=== PATIENT | female | born 1970 | race Caucasian/White ===

== ENCOUNTER 2018-01-15 13:27 | Emergency (ER) | payer OTHER ==
--- NOTE | 2018-01-15 14:03 | Emergency Department Record ---
History of Present Illness - General Chief Complaint: Headache Migraine Stated Complaint: SHANKAR Time Seen by Provider: 01/15/18 13:31 Source: Patient, RN notes reviewed Mode of Arrival: Ambulatory - History of Present Illness Initial Comments: neck pain and headache and she has been off migraine medications because the headaches were better and the last two more headche. This headache today strated this Am and other headaches in the last two weeks. Motrin 800 at 5 am today. She works as a RN. Primary Dr. Perez. previously Bisoprolol and topamax , Moving neck well but she has right paracervical muscle pain. No nuchal signs MD Complaint: Headache Onset/Timin -: Hour(s) Onset Description: Awoke with symptoms Location: Frontal, Neck Severity: Moderate Severity scale (1-10): 7 Quality: Pulsatile, Throbbing Improves With: Nothing Worsens With: Light, Movement of head/neck Associated Symptoms: Nausea Treatments Prior to Arrival: None - Related Data Previous Rx's Medication Instructions Recorded Naproxen [Naprosyn] 500 mg PO Q12H #20 tab. 01/15/18 Allergies Allergy/AdvReac Type Severity Reaction Status Date / Time Sulfa (Sulfonamide AdvReac NAUSEA AND Verified 01/15/18 13:41 Antibiotics) VOMITING Travel Screening - Travel/Exposure Within Last 30 Days Have you traveled within the last 30 days?: No - Travel/Exposure Within Last Year Have you traveled outside the [place] in the last year?: No - Additonal Travel Details Have you been exposed to anyone with a communicable illness?: No - Travel Symptoms Symptom Screening: None Review of Systems Reviewed: No additional complaints except as noted below Constitutional: Reports: As per HPI. Denies: Chills, Fever, Malaise, Night sweats, Weakness, Weight change Eyes: Reports: As per HPI. Denies: Eye discharge, Eye pain, Photophobia, Vision change ENT: Reports: As per HPI. Denies: Congestion, Dental pain, Ear pain, Epistaxis , Hearing loss, Throat pain Respiratory: Reports: As per HPI. Denies: Cough, Dyspnea, Hemoptysis, Stridor, Wheezes Cardiovascular: Reports: As per HPI. Denies: Arrhythmia, Chest pain, Dyspnea on exertion, Edema, Murmurs, Orthopnea, Palpitations, Paroxysmal nocturnal dyspnea, Rheumatic Fever, Syncope Endocrine: Reports: As per HPI. Denies: Fatigue, Heat or cold intolerance, Polydipsia, Polyuria Gastrointestinal: Reports: As per HPI. Denies: Abdominal pain, Constipation, Diarrhea, Hematemesis, Hematochezia, Melena, Nausea, Vomiting Genitourinary: Reports: As per HPI. Denies: Abnormal menses, Discharge, Dyspareunia, Dysuria, Frequency, Hematuria, Incontinence, Retention, Urgency Musculoskeletal: Reports: As per HPI. Denies: Arthralgia, Back pain, Gout, Joint swelling, Myalgia, Neck pain Skin: Reports: As per HPI. Denies: Bruising, Change in color, Change in hair/ nails, Lesions, Pruritus, Rash Neurological: Reports: As per HPI, Headache. Denies: Abnormal gait, Confusion, Numbness, Paresthesias, Seizure, Tingling, Tremors, Vertigo, Weakness Psychiatric: Reports: As per HPI. Denies: Anxiety, Auditory hallucinations, Depression, Homicidal thoughts, Suicidal thoughts, Visual hallucinations Hematological/Lymphatic: Reports: As per HPI. Denies: Anemia, Blood Clots, Easy bleeding, Easy bruising, Swollen glands Past Medical History - SOCIAL HISTORY Smoking Status: Never smoker Alcohol Use: None Drug Use: None - RESPIRATORY Hx Respiratory Disorders: No - CARDIOVASCULAR Hx Cardio Disorders: No - NEURO Hx Neuro Disorders: Yes Hx Headaches: Yes - GI Hx GI Disorders: No - Hx Genitourinary Disorders: No - ENDOCRINE Hx Endocrine Disorders: No - MUSCULOSKELETAL Hx Musculoskeletal Disorders: Yes Hx Arthritis: Yes (OSTEOARTHRITIS) - PSYCH Hx Psych Problems: Yes Hx Depression: Yes - HEMATOLOGY/ONCOLOGY Hx Hematology/Oncology Disorders: No Family Medical History Any Significant Family History?: No Hx Cancer: Mother Hx Heart Disease: Father Hx Stroke: Father, Mother Physical Exam - General General Appearance: Alert, Oriented x3, Cooperative, No acute distress - Head Head exam: Normal inspection - Eye Eye exam: Normal appearance, PERRL Pupils: Normal accommodation - ENT ENT exam: Normal exam, Mucous membranes moist, Normal external ear exam, Normal orophraynx, TM's normal bilaterally Ear exam: Normal external inspection. negative: External canal tenderness Nasal Exam: Normal inspection. negative: Discharge, Sinus tenderness Mouth exam: Normal external inspection, Tongue normal Teeth exam: Normal inspection. negative: Dental caries Throat exam: Normal inspection. negative: Tonsillar erythema, Tonsillar exudate - Neck Neck exam: Normal inspection, Full ROM. negative: Tenderness - Respiratory Respiratory exam: Normal lung sounds bilaterally. negative: Respiratory distress - Cardiovascular Cardiovascular Exam: Regular rate, Normal rhythm, Normal heart sounds - GI/Abdominal GI/Abdominal exam: Soft, Normal bowel sounds. negative: Tenderness - Rectal Rectal exam: Deferred - exam: Deferred - Extremities Extremities exam: Normal inspection, Full ROM, Normal capillary refill. negative: Tenderness - Back Back exam: Reports: Normal inspection, Full ROM. Denies: Muscle spasm, Rash noted, Tenderness - Neurological Neurological exam: Alert, Normal gait, Oriented X3, Reflexes normal - Psychiatric Psychiatric exam: Normal affect, Normal mood - Skin Skin exam: Dry, Intact, Normal color, Warm Course Vital Signs 01/15/18 01/15/18 13:30 13:46 Temperature 98.4 F Pulse Rate 89 Respiratory 18 Rate Blood Pressure 158/113 Blood Pressure 150/78 [Left Arm] Pulse Ox 98 feeling better, neuro neg - Reevaluation(s) Reevaluation #1: patient would lioke topamax and I told her to follow up with her family and to use naprosyn to her her for additional pain control 01/15/18 15:18 Disposition Clinical Impression: Headache Qualifiers: Headache type: unspecified Headache chronicity pattern: acute headache Intractability: not intractable Qualified Code(s): R51 - Headache Disposition: Home, Self-Care Condition: (1) Good Instructions: Migraine Headache (ED) Additional Instructions: follow up with family in 4 days Prescriptions: Naproxen [Naprosyn] 500 mg PO Q12H #20 tab.dr Forms: Patient Portal Access Time of Disposition: 15:16 Quality - Quality Measures Quality Measures: N/A - Blood Pressure Screening Does Patient Have Any of the Following: No Blood Pressure Classification: Hypertensive Reading Systolic Measurement: 158 Diastolic Measurement: 113 Screening for High Blood Pressure: < First Hypertensive BP, F/U Documented > [ G8950] First Hypertensive Follow-up Interventions: Referral to alternative/primary care provider.
[2018-01-15] MEDS ORDERED: KETOROLAC 60 MG/2 ML VIAL IM STA (14:12)
[2018-01-15] MEDS ORDERED: ORPHENADRINE CITRATE 60MG/2ML VIAL IM ONE (14:12)
[2018-01-15] MEDS ORDERED: DIPHENHYDRAMINE HCL IV 50 MG/ML VIAL IM ONE (14:52)
[2018-01-15] MEDS ORDERED: NAPROXEN 250 MG TABLET PO SCH (15:15)
== END 2018-01-15 15:25 | disposition home or self-care (01) ==
LOC: ER 13:27
DX: R51 Headache (principal); R11.0 Nausea; M54.2 Cervicalgia
CPT/HCPCS: 96372; 99283; J1200; J1885; J2360

== ENCOUNTER 2018-02-28 17:33 | Emergency (ER) | payer OTHER ==
[2018-02-28] MEDS ORDERED: 0.9 % SODIUM CHLORIDE 1,000 ML BAG IV ONE (18:33)
[2018-02-28 18:44] LABS: BASO % 0.2 % (0-6); EOS % 2.1 % (0-6); HEMATOCRIT 35.9 % (35.0-47.0); HEMOGLOBIN 11.9 gm/dl (11.6-16.0); LYMPH % 23.2 % (16-45); MEAN CELL VOLUME 93.2 fl (81-97); MEAN CORPUSCULAR HEMOGLOBIN 30.9 pg (27-33); MEAN CORPUSCULAR HGB CONC 33.1 g/dl (32-36); MEAN PLATELET VOLUME 11.5 fl (7.4-10.4); MONO % 5.5 % (0-9); PLATELET COUNT 245 K/uL (130-400); RED BLOOD COUNT 3.85 M/uL (3.80-5.40); RED CELL DISTRIBUTION WIDTH 13.3 % (11.5-14.5); WHITE BLOOD COUNT W/O DIFF 10.6 K/uL (4.2-12.2)
[2018-02-28 18:57] LABS: BLOOD UREA NITROGEN 25 mg/dL (6-20); CREATININE 0.6 mg/dL (0.5-0.9); EST GLOMERULAR FILTRATION RATE > 60 mL/min; PARTIAL THROMBOPLASTIN TIME 24.9 SECONDS (24.5-39.1); PROTHROMBIN TIME (PATIENT) 10.5 SECONDS (9.5-12.1)
[2018-02-28 18:58] LABS: TOTAL PROTEIN 6.9 g/dL (6.6-8.7)
[2018-02-28 19:00] LABS: GLUCOSE,RANDOM 101 mg/dL (74-109)
[2018-02-28 19:03] LABS: ALB/GLOB RATIO 1.8 (1.1-1.8); ALBUMIN 4.4 g/dL (4.0-5.0); ALKALINE PHOSPHATASE 112 U/L (35-104); ALT/SGPT 23 U/L (<33); AST/SGOT 19 U/L (10.0-35.0); LIPASE 39 U/L (13-60)
--- NOTE | 2018-02-28 19:52 | Emergency Department Record ---
History of Present Illness - General Chief complaint: Nausea, Vomiting, Diarrhea Stated complaint: DIARRHEA,BLOOD IN STOOL Time Seen by Provider: 02/28/18 18:23 Source: Patient Mode of Arrival: Ambulatory Limitations: No limitations - History of Present Illness Initial comments: pt has been having purple diarrhea stools since yesterday . no n/v/c. she denies pain. pt has never had this. she has been taking naprosyn twice a day sometimes without food. complaint: Melena Onset/Timin -: Hour(s) Radiation: None Quality: Painless Improves with: None Worsens with: None Associated Symptoms: Denies other symptoms - Related Data Home Medications Medication Instructions Recorded Confirmed Last Taken Bisoprol/Hydrochlorothiazide 1 each PO ASDIR 02/28/18 02/28/18 Unknown [Bisoprolol-Hctz 10-6.25 mg Tab] Previous Rx's Medication Instructions Recorded Naproxen [Naprosyn] 500 mg PO Q12H #20 tab. 01/15/18 Allergies Allergy/AdvReac Type Severity Reaction Status Date / Time Sulfa (Sulfonamide AdvReac NAUSEA AND Verified 02/28/18 18:04 Antibiotics) VOMITING Travel Screening - Travel/Exposure Within Last 30 Days Have you traveled within the last 30 days?: No Review of Systems Reviewed: No additional complaints except as noted below Constitutional: Reports: As per HPI. Denies: Chills, Fever, Malaise, Night sweats, Weakness, Weight change Eyes: Reports: As per HPI. Denies: Eye discharge, Eye pain, Photophobia, Vision change ENT: Reports: As per HPI. Denies: Congestion, Dental pain, Ear pain, Epistaxis , Hearing loss, Throat pain Respiratory: Reports: As per HPI. Denies: Cough, Dyspnea, Hemoptysis, Stridor, Wheezes Cardiovascular: Reports: As per HPI. Denies: Arrhythmia, Chest pain, Dyspnea on exertion, Edema, Murmurs, Orthopnea, Palpitations, Paroxysmal nocturnal dyspnea, Rheumatic Fever, Syncope Endocrine: Reports: As per HPI. Denies: Fatigue, Heat or cold intolerance, Polydipsia, Polyuria Gastrointestinal: Reports: As per HPI, Melena. Denies: Abdominal pain, Constipation, Diarrhea, Hematemesis, Hematochezia, Nausea, Vomiting Genitourinary: Reports: As per HPI. Denies: Abnormal menses, Discharge, Dyspareunia, Dysuria, Frequency, Hematuria, Incontinence, Retention, Urgency Musculoskeletal: Reports: As per HPI. Denies: Arthralgia, Back pain, Gout, Joint swelling, Myalgia, Neck pain Skin: Reports: As per HPI. Denies: Bruising, Change in color, Change in hair/ nails, Lesions, Pruritus, Rash Neurological: Reports: As per HPI. Denies: Abnormal gait, Confusion, Headache, Numbness, Paresthesias, Seizure, Tingling, Tremors, Vertigo, Weakness Psychiatric: Reports: As per HPI. Denies: Anxiety, Auditory hallucinations, Depression, Homicidal thoughts, Suicidal thoughts, Visual hallucinations Hematological/Lymphatic: Reports: As per HPI. Denies: Anemia, Blood Clots, Easy bleeding, Easy bruising, Swollen glands Past Medical History - SOCIAL HISTORY Smoking Status: Never smoker Alcohol Use: None Drug Use: None - RESPIRATORY Hx Respiratory Disorders: No - CARDIOVASCULAR Hx Cardio Disorders: No - NEURO Hx Neuro Disorders: Yes Hx Headaches: Yes - GI Hx GI Disorders: No - Hx Genitourinary Disorders: No - ENDOCRINE Hx Endocrine Disorders: No - MUSCULOSKELETAL Hx Musculoskeletal Disorders: Yes Hx Arthritis: Yes (OSTEOARTHRITIS) - PSYCH Hx Psych Problems: Yes Hx Depression: Yes - HEMATOLOGY/ONCOLOGY Hx Hematology/Oncology Disorders: No Family Medical History Any Significant Family History?: Yes Hx Cancer: Mother Hx Heart Disease: Father Hx Stroke: Father, Mother Physical Exam - General General Appearance: Alert, Oriented x3, Cooperative, Mild distress - Head Head exam: Normal inspection - Eye Eye exam: Normal appearance, PERRL, EOMI Pupils: Normal accommodation - ENT ENT exam: Normal exam, Mucous membranes moist, Normal external ear exam, Normal orophraynx, TM's normal bilaterally Ear exam: Normal external inspection. negative: External canal tenderness Nasal Exam: Normal inspection. negative: Discharge, Sinus tenderness Mouth exam: Normal external inspection, Tongue normal Teeth exam: Normal inspection. negative: Dental caries Throat exam: Normal inspection. negative: Tonsillar erythema, Tonsillar exudate - Neck Neck exam: Normal inspection, Full ROM. negative: Tenderness - Respiratory Respiratory exam: Normal lung sounds bilaterally. negative: Respiratory distress - Cardiovascular Cardiovascular Exam: Regular rate, Normal rhythm, Normal heart sounds - GI/Abdominal GI/Abdominal exam: Soft, Normal bowel sounds, Tenderness (in epigastrum) - Rectal Rectal exam: Black stool, Heme (+) stool - exam: Deferred - Extremities Extremities exam: Normal inspection, Full ROM, Normal capillary refill. negative: Tenderness - Back Back exam: Reports: Normal inspection, Full ROM. Denies: Muscle spasm, Rash noted, Tenderness - Neurological Neurological exam: Alert, CN II-XII intact, Normal gait, Oriented X3 - Psychiatric Psychiatric exam: Normal affect, Normal mood - Skin Skin exam: Dry, Intact, Normal color, Warm Course Vital Signs 02/28/18 17:59 Temperature 98.2 F Pulse Rate 64 Respiratory 18 Rate Blood Pressure 121/60 Pulse Ox 100 Medical Decision Making - Lab Data Result diagrams: 02/28/18 18:20 02/28/18 18:20 Lab Results 02/28/18 02/28/18 02/28/18 Range/Units 18:20 18:20 18:20 WBC 10.6 (4.2-12.2) K/uL RBC 3.85 (3.80-5.40) M/uL Hgb 11.9 (11.6-16.0) gm/dl Hct 35.9 (35.0-47.0) % MCV 93.2 (81-97) fl MCH 30.9 (27-33) pg MCHC 33.1 (32-36) g/dl RDW 13.3 (11.5-14.5) % Plt Count 245 (130-400) K/uL MPV 11.5 H (7.4-10.4) fl Gran % 69.0 (47-80) % Lymphocytes % 23.2 (16-45) % Monocytes % 5.5 (0-9) % Eosinophils % 2.1 (0-6) % Basophils % 0.2 (0-6) % PT 10.5 (9.5-12.1) SECONDS INR 1.0 APTT 24.9 (24.5-39.1) SECONDS Sodium 140 (136-145) mmol/L Potassium 4.0 (3.4-4.5) mmol/L Chloride 99 (98-107) mmol/L Carbon Dioxide 27.0 (22-29) mmol/L Anion Gap 14.0 (7-16) BUN 25 H (6-20) mg/dL Creatinine 0.6 (0.5-0.9) mg/dL Estimated GFR > 60 mL/min Random Glucose 101 (74-109) mg/dL Calcium 9.8 (8.6-10.0) mg/dL Total Bilirubin 0.40 (0.2-1.0) mg/dL AST 19 (10.0-35.0) U/L ALT 23 (<33) U/L Alkaline Phosphatase 112 H (35-104) U/L Total Protein 6.9 (6.6-8.7) g/dL Albumin 4.4 (4.0-5.0) g/dL Globulin 2.5 (1.4-4.8) gm/dL Albumin/Globulin Ratio 1.8 (1.1-1.8) Lipase 39 (13-60) U/L Disposition Disposition: Transfer Clinical Impression: GI bleed due to NSAIDs Disposition: Acute Care Hospital Transfer Transfer To: [facility] Reason For Transfer: gi bleed Accepting Physician: dr lombardi Time Discussed w/Accepting Physician: 20:15 Forms: Patient Portal Access Quality - Quality Measures Quality Measures: N/A - Blood Pressure Screening Does Patient Have Any of the Following: No Blood Pressure Classification: Pre-Hypertensive BP Reading Systolic Measurement: 121 Diastolic Measurement: 60 Screening for High Blood Pressure: < Pre-Hypertensive BP, F/U Documented > [ G8950] Pre-Hypertensive Follow-up Interventions: Follow-up with rescreen every year.
[2018-02-28] MEDS ORDERED: ONDANSETRON HCL IV 4 MG/2 ML VIAL IVP ONE (20:53)
[2018-02-28] MEDS ORDERED: HYDROMORPHONE HCL 2 MG/ML VIAL IVP ONE (22:13)
--- NOTE | 2018-03-01 08:47 | CT SCAN REPORT ---
EXAM: CT OF THE ABDOMEN AND PELVIS WITHOUT CONTRAST HISTORY: BLOOD DIARRHEA. TECHNIQUE: CT of the abdomen and pelvis without oral or IV contrast were obtained which limits evaluation of bowel and solid visceral organs. Comparison: None. FINDINGS: The lung bases are unremarkable. The osseous structures are grossly intact. Probable fatty infiltrative change to the liver. Limited evaluation of the spleen, adrenal glands, pancreas and kidneys is unremarkable. The gallbladder is present. No gross evidence for bowel obstruction. Status post appendectomy. No free air or free fluid. What appears to be a tubal ligation clip lying in the posterior hemipelvis, the second line over the right fallopian tube. IMPRESSION: 1. THERE IS SUGGESTION OF A DISPLACED FALLOPIAN TUBE CLIP, ABOVE. 2. PROBABLE FATTY INFILTRATIVE CHANGE TO THE LIVER. JOB NUMBER: [id number] [facility]
== END 2018-02-28 22:19 | disposition short-term general hospital (02) ==
LOC: ER 17:33
DX: K92.1 Melena (principal); T39.395A Adverse effect of other nonsteroidal anti-inflammatory drugs [NSAID], initial encounter
CPT/HCPCS: 99285 ×2; 96374; 96375; 83690; 85025; 85730; 85610; 80053; 74176; J2405; J1170; J7030

== ENCOUNTER 2019-01-23 16:19 | Emergency (ER) | payer SELFPAY ==
--- NOTE | 2019-01-23 16:48 | Emergency Department Record ---
History of Present Illness - General Chief Complaint: Chest Pain Stated Complaint: HIGH BLOOD PRESSURECHEST PAIN Time Seen by Provider: 01/23/19 16:34 Source: Patient Mode of Arrival: Ambulatory Limitations: No limitations - History of Present Illness Initial Comments: The patient is here due to vague L sided chest aching off and on for 2-3 days. She also has had an elevated BP at home. The patient states she just has not felt right for the last few days. She has recently decreased her Synthroid dose also. The patient states the vague discomfort is not related to exertion or eating and she denies any SOB, HAILEY, or sweating with the discomfort but she has had mild nausea at times. The patient denies any cardiac risk factors except a family hx of CAD with her father having issues in his early 50's. MD Complaint: Chest pain Onset/Timin -: Days(s) Pain Location: Substernal, Left chest Severity: Moderate Severity scale (1-10): 4 Quality: Aching, Dull, Heaviness Consistency: Intermittent Anginal Symptoms: Nausea Treatments Prior to Arrival: None - Related Data Home Medications Medication Instructions Recorded Confirmed Last Taken Gabapentin [Neurontin] 300 mg PO BID 01/23/19 01/23/19 1 Day Ago ~01/22/19 Levothyroxine Sodium [Synthroid] 12.5 mcg PO DAILY 01/23/19 01/23/19 3 Days Ago ~01/20/19 Pantoprazole Sodium [Protonix] 40 mg PO DAILY 01/23/19 01/23/19 1 Day Ago ~01/22/19 Allergies Allergy/AdvReac Type Severity Reaction Status Date / Time Sulfa (Sulfonamide AdvReac NAUSEA AND Verified 01/23/19 16:28 Antibiotics) VOMITING Travel Screening - Travel/Exposure Within Last 30 Days Have you traveled within the last 30 days?: No - Travel/Exposure Within Last Year Have you traveled outside the [place] in the last year?: No - Additonal Travel Details Have you been exposed to anyone with a communicable illness?: No - Travel Symptoms Symptom Screening: None Review of Systems Constitutional: Denies: Chills, Fever Eyes: Denies: Eye discharge ENT: Denies: Congestion Respiratory: Denies: Cough, Dyspnea Cardiovascular: Denies: Arrhythmia Endocrine: Reports: Fatigue Gastrointestinal: Denies: Diarrhea, Vomiting Genitourinary: Denies: Dysuria Musculoskeletal: Denies: Arthralgia Skin: Denies: Bruising Past Medical History - SOCIAL HISTORY Smoking Status: Never smoker Alcohol Use: None Drug Use: None - RESPIRATORY Hx Respiratory Disorders: No - CARDIOVASCULAR Hx Cardio Disorders: No - NEURO Hx Neuro Disorders: Yes Hx Headaches: Yes - GI Hx GI Disorders: Yes Hx Reflux: Yes Hx Rectal Bleeding: Yes Comment:: GI bleed from Naprosyn - Hx Genitourinary Disorders: No - ENDOCRINE Hx Endocrine Disorders: No - MUSCULOSKELETAL Hx Musculoskeletal Disorders: Yes Hx Arthritis: Yes (OSTEOARTHRITIS) - PSYCH Hx Psych Problems: Yes Hx Depression: Yes - HEMATOLOGY/ONCOLOGY Hx Hematology/Oncology Disorders: No Family Medical History Any Significant Family History?: Yes Hx Cancer: Mother Hx Heart Disease: Father Hx Stroke: Father, Mother Physical Exam - General General Appearance: Alert, Oriented x3, Cooperative, No acute distress - Head Head exam: Atraumatic, Normocephalic, Normal inspection - Eye Eye exam: Normal appearance, PERRL, EOMI - ENT Throat exam: Normal inspection. negative: Tonsillar erythema, Tonsillar exudate - Neck Neck exam: Normal inspection, Full ROM. negative: Tenderness - Respiratory Respiratory exam: Normal lung sounds bilaterally. negative: Respiratory distress - Cardiovascular Cardiovascular Exam: Regular rate, Normal rhythm, Normal heart sounds. negative : Diastolic murmur, Systolic murmur - GI/Abdominal GI/Abdominal exam: Soft, Normal bowel sounds. negative: Tenderness - Extremities Extremities exam: Normal inspection, Full ROM, Normal capillary refill. negative: Tenderness - Neurological Neurological exam: Alert, Normal gait. 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 Her repeat BP is normal and she denies any chest discomfort or pain. I did discuss the issues relating to her complaints and do the vague nature of her complaints and family hx did recommend hospital admission for a cardiac echo and stress test. Due to no Chair Finisher here tomorrow the patient would have to be transferred but she is refusing the plan. I explained to her that the risks of refusing are that the patient could go home and have an PA, stroke, become disabled and even . The patient understands and accepts the risks and was told to return to the ER at any time for recheck if her symptoms worsen or if she changes her mind. We will place a consultation to Cardiology in the Specialty clinic for later this week. Additionally the patient presently has proper decision making capacity and understands the risks of leaving and the fact we would not be liable for NOT continuing her evaluation as an inpatient. 01/23/19 17:56 01/23/19 18:03 Medical Decision Making - Data Complexity MDM Data: Labs Ordered and/or Reviewed, X-Ray Ordered and/or Reviewed, EKG Ordered and/or Reviewed - Lab Data Result diagrams: 01/23/19 16:25 01/23/19 16:25 - EKG Data -: EKG Interpreted by Me EKG: No Acute Changes, Normal EKG - Radiology Data Radiology results: Report reviewed (CXR: Neg for acute changes.) Disposition Disposition: Discharge Clinical Impression: Hypertension Qualifiers: Hypertension type: unspecified Qualified Code(s): I10 - Essential (primary) hypertension Disposition: Home, Self-Care Condition: (2) Stable Instructions: Hypertension (ED) Additional Instructions: Please continue your regular medicines and continue to monitor your blood pressure. Please see Dr. Brand in the Specialty clinic later this week. Return to the ER for any worsening symptoms or if you change your mind about staying in the hospital for monitoring or further evaluation. Referrals: [facility] Special[facility] [Provider Group] Forms: Patient Portal Access Time of Disposition: 18:03 Quality - Quality Measures Quality Measures: N/A - Blood Pressure Screening View Details: Yes Does Patient Have Any of the Following: No Blood Pressure Classification: Pre-Hypertensive BP Reading Systolic Measurement: 129 Diastolic Measurement: 62 Screening for High Blood Pressure: < Pre-Hypertensive BP, F/U Documented > [ G8950] Pre-Hypertensive Follow-up Interventions: Referral to alternative/primary care provider.
[2019-01-23 16:51] LABS: BASO % 0.5 % (0-6); EOS % 2.5 % (0-6); GRAN % 64.9 % (47-80); HEMOGLOBIN 13.9 gm/dl (11.6-16.0); MEAN CELL VOLUME 91.3 fl (81-97); MEAN CORPUSCULAR HEMOGLOBIN 29.5 pg (27-33); MEAN CORPUSCULAR HGB CONC 32.3 g/dl (32-36); MEAN PLATELET VOLUME 11.3 fl (7.4-10.4); MONO % 9.1 % (0-9); PLATELET COUNT 314 K/uL (130-400); RED BLOOD COUNT 4.71 M/uL (3.80-5.40); RED CELL DISTRIBUTION WIDTH 14.5 % (11.5-14.5); WHITE BLOOD COUNT W/O DIFF 9.6 K/uL (4.2-12.2)
[2019-01-23 17:04] LABS: BLOOD UREA NITROGEN 17 mg/dL (6-20); CREATININE 0.7 mg/dL (0.5-0.9); EST GLOMERULAR FILTRATION RATE > 60 mL/min
[2019-01-23 17:07] LABS: GLUCOSE,RANDOM 94 mg/dL (74-109)
[2019-01-23 17:09] LABS: ALT/SGPT 28 U/L (<33); AST/SGOT 18 U/L (10.0-35.0)
[2019-01-23 17:10] LABS: ALB/GLOB RATIO 1.4 (1.1-1.8); ALBUMIN 4.7 g/dL (4.0-5.0); ALKALINE PHOSPHATASE 173 U/L (35-104); CREATINE PHOSPHOKINASE 102 U/L (26-192)
[2019-01-23 17:15] LABS: CKMB 1.3 ng/mL (<3.77)
[2019-01-23 17:22] LABS: THYROID STIMULATING HORMONE 2.41 uIU/mL (0.270-4.20)
--- NOTE | 2019-01-25 20:04 | RADIOLOGY REPORT ---
EXAM: CHEST 2 VIEWS HISTORY: CHEST DISCOMFORT WITH NAUSEA AND DIZZINESS FOR THE PAST FOUR DAYS. CHEST PAIN. TECHNIQUE: PA and lateral upright views of the chest were obtained. COMPARISON: None. FINDINGS: The heart, mediastinum, and pulmonary vasculature are normal. The lungs are clear. There is no pneumothorax or effusion. The bones appear intact. IMPRESSION: NO ACUTE CHEST PATHOLOGY. JOB NUMBER: [id number] [facility]
== END 2019-01-23 18:26 | disposition home or self-care (01) ==
LOC: ER 16:19
DX: I10 Essential (primary) hypertension (principal); R07.2 Precordial pain; R11.0 Nausea; R42 Dizziness and giddiness
CPT/HCPCS: 71046; 80053; 82550; 82553; 84443; 84484; 85025; 93005; 93010; 99284